=== PATIENT | female | born 1960 | race Caucasian/White ===

== ENCOUNTER 2018-10-21 17:42 | Inpatient (IN) | payer OTHER ==
[~2018-10-21] VITALS: Ht 154.9 cm; Wt 89.8 kg
[2018-10-21] MEDS ORDERED: NS 1,000 ML IV ONE (18:15)
[2018-10-21] MEDS ORDERED: KETOROLAC 30 MG/ML VIAL (J1885) IV ONE (18:15)
[2018-10-21] MEDS ORDERED: ONDANSETRON 4MG/2ML VIAL (J2405) IV ONE (18:15)
[2018-10-21 18:36] LABS: BASO # 0.1 10^3/uL (0.0-0.2); BASO % 0.6 % (0.0-1.0); EOS % 0.2 % (0.0-3.0); HEMATOCRIT 47.8 % (36.0-47.0); HEMOGLOBIN 15.7 g/dl (12.0-15.5); LYMPH # 2.4 10^3/uL (1.5-4.5); LYMPH % 19.2 % (24.0-44.0); MEAN CORPUSCULAR HEMOGLOBIN 29.2 pg (27.0-33.0); MEAN CORPUSCULAR HGB CONC 32.8 g/dl (32.0-36.5); MONO # 0.9 10^3/uL (0.0-0.8); MONO % 7.4 % (0.0-5.0); NEUTROPHILS # 9.2 10^3/uL (1.8-7.7); NEUTROPHILS % 72.4 % (36.0-66.0); PLATELET COUNT, AUTOMATED 290 10^3/uL (150-450); RED BLOOD COUNT 5.37 10^6/uL (4.00-5.40); WHITE BLOOD COUNT 12.7 10^3/uL (4.0-10.0)
[2018-10-21 19:00] LABS: ACETONE/KETONE 2.82 MG/DL (<2.81); ALBUMIN 4.2 GM/DL (3.2-5.2); ALT/SGPT 28 U/L (12-78); BILIRUBIN,DIRECT 0.2 MG/DL (0.0-0.2); BILIRUBIN,TOTAL 0.7 MG/DL (0.2-1.0); BLOOD UREA NITROGEN 15 MG/DL (7-18); CALCIUM LEVEL 8.9 MG/DL (8.5-10.1); CARBON DIOXIDE LEVEL 28 MEQ/L (21-32); CHLORIDE LEVEL 102 MEQ/L (98-107); CPK CREATINE PHOSPHOKINASE 84 U/L (26-192); CREATININE FOR GFR 0.71 MG/DL (0.55-1.30); GLOMERULAR FILTRATION RATE > 60.0 (>51); GLUCOSE, FASTING 121 MG/DL (70-100); LIPASE 69 U/L (73-393); MB/CK RELATIVE INDEX 1.67 (< OR =4); PHOSPHORUS LEVEL 2.8 MG/DL (2.5-4.9); POTASSIUM SERUM 3.6 MEQ/L (3.5-5.1); SODIUM LEVEL 137 MEQ/L (136-145); TOTAL PROTEIN 7.8 GM/DL (6.4-8.2); TROPONIN I < 0.02 NG/ML (< 0.10)
[2018-10-21 19:10] LABS: OSMOLALITY SERUM 290 MOSM/KG (275-295)
--- NOTE | 2018-10-21 19:40 | REPVR ---
EXAM: US Abdomen Limited, Right Upper Quadrant EXAM DATE/TIME: 10/21/2018 7:09 PM CLINICAL HISTORY: 58 years old, female; Pain; Abdominal pain; Acute; Additional info: Ruq pain TECHNIQUE: Real-time ultrasound of the abdomen with image documentation. Examination was focused on the right upper quadrant. COMPARISON: No relevant prior studies available. FINDINGS: Liver: There is a diffuse decrease in hepatic parenchymal density, consistent with fatty infiltration. Gallbladder: Thickened gallbladder wall. Gallbladder filled with sludge. Positive sonographic Reeder's sign. Pericholecystic fluid. Findings consistent with acute cholecystitis. Common bile duct: Common bile duct measures 3-2 millimeters. Pancreas: Obscured by bowel gas Right kidney: Normal. Measures 10.4 x 5 x 4.1 cm. No mass. No hydronephrosis. IMPRESSION: 1. There is a diffuse decrease in hepatic parenchymal density, consistent with fatty infiltration. 2. Thickened gallbladder wall. Gallbladder filled with sludge. Positive sonographic Reeder's sign. Pericholecystic fluid. Findings consistent with acute cholecystitis. Electronically signed by: Diaz Montes On 10/21/2018 19:40:14 PM
[2018-10-21] MEDS ORDERED: EXCETAB80 PO (20:09)
[2018-10-21] MEDS ORDERED: LR 1,000 ML IV SCH (20:54)
[2018-10-21] MEDS ORDERED: PERCOCET 5MG/325MG TAB PO PRN (21:00)
[2018-10-21] MEDS ORDERED: ONDANSETRON 4MG/2ML VIAL (J2405) IV PRN (21:00)
[2018-10-21] MEDS ORDERED: ACETAMINOPHEN TAB 650MG DOSE (2X325MG) PO PRN (21:00)
[2018-10-21] MEDS ORDERED: AMPICILLIN SOD/SULBACTAM SOD 3 GM in D5W MINI-BAG PLUS 100 ML IV STA (21:04)
[2018-10-21] MEDS: MORPHINE 4 MG/ML 1ML VIAL/SYRINGE (J2270) IV PRN (22:00)
[2018-10-21 22:45] VITALS: BP 158/71
[2018-10-21] MEDS: metroNIDAZOLE 500 MG in APPROPRIATE DILUENT 1 EA IV SCH (23:05)
[2018-10-21] MEDS: PERCOCET 5MG/325MG TAB PO PRN (23:07)
[2018-10-22] MEDS: AMPICILLIN SOD/SULBACTAM SOD 3 GM in D5W MINI-BAG PLUS 100 ML IV SCH ×4 (03:49→22:50)
[2018-10-22] MEDS: MORPHINE 4 MG/ML 1ML VIAL/SYRINGE (J2270) IV PRN (03:50)
[2018-10-22 04:00] VITALS: BP 142/76
[2018-10-22] MEDS: HEPARIN SOD (PORCINE) 5000 UNITS/ML VIAL SC SCH ×3 (06:35→22:50)
[2018-10-22] MEDS: metroNIDAZOLE 500 MG in APPROPRIATE DILUENT 1 EA IV SCH ×3 (06:35→22:50)
[2018-10-22] MEDS: PERCOCET 5MG/325MG TAB PO PRN (06:45)
[2018-10-22 08:15] VITALS: BP 130/60
[2018-10-22 08:31] LABS: BASO # 0.1 10^3/uL (0.0-0.2); BASO % 0.6 % (0.0-1.0); EOS # 0.1 10^3/uL (0.0-0.50); EOS % 0.8 % (0.0-3.0); HEMATOCRIT 41.1 % (36.0-47.0); LYMPH # 1.7 10^3/uL (1.5-4.5); LYMPH % 19.2 % (24.0-44.0); MEAN CORPUSCULAR HEMOGLOBIN 29.4 pg (27.0-33.0); MEAN CORPUSCULAR HGB CONC 32.4 g/dl (32.0-36.5); MEAN CORPUSCULAR VOLUME 90.7 fl (80.0-96.0); MONO # 0.8 10^3/uL (0.0-0.8); MONO % 8.7 % (0.0-5.0); NEUTROPHILS # 6.1 10^3/uL (1.8-7.7); NEUTROPHILS % 70.5 % (36.0-66.0); PLATELET COUNT, AUTOMATED 208 10^3/uL (150-450); RED BLOOD COUNT 4.53 10^6/uL (4.00-5.40); WHITE BLOOD COUNT 8.6 10^3/uL (4.0-10.0)
[2018-10-22 08:33] LABS: HEMOGLOBIN 13.3 g/dl (12.0-15.5)
[2018-10-22 09:05] LABS: ALBUMIN 2.9 GM/DL (3.2-5.2); ALT/SGPT 57 U/L (12-78); BLOOD UREA NITROGEN 12 MG/DL (7-18); CARBON DIOXIDE LEVEL 29 MEQ/L (21-32); CHLORIDE LEVEL 106 MEQ/L (98-107); CPK CREATINE PHOSPHOKINASE 61 U/L (26-192); CREATININE FOR GFR 0.58 MG/DL (0.55-1.30); GLOMERULAR FILTRATION RATE > 60.0 (>51); GLUCOSE, FASTING 115 MG/DL (70-100); MB/CK RELATIVE INDEX 2.13 (< OR =4); POTASSIUM SERUM 3.3 MEQ/L (3.5-5.1); SODIUM LEVEL 139 MEQ/L (136-145); TROPONIN I < 0.02 NG/ML (< 0.10)
[2018-10-22 09:50] LABS: MAGNESIUM LEVEL 1.9 MG/DL (1.8-2.4)
[2018-10-22] MEDS ORDERED: POTASSIUM CHLORIDE INJ 20 MEQ in LR 1,000 ML IV SCH (10:00)
[2018-10-22] MEDS ORDERED: POTASSIUM CHLORIDE 10 MEQ SR TABLET PO ONE (10:00)
[2018-10-22] MEDS: KETOROLAC 30 MG/ML VIAL (J1885) IV PRN ×3 (10:28→23:08)
[2018-10-22 14:51] LABS: CPK CREATINE PHOSPHOKINASE 60 U/L (26-192); MB/CK RELATIVE INDEX 1.83 (< OR =4); TROPONIN I < 0.02 NG/ML (< 0.10)
[2018-10-22 16:30] VITALS: BP 155/74
--- NOTE | 2018-10-22 17:38 | ECGEPIP ---
Stationary ECG Study 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
--- NOTE | 2018-10-22 17:42 | ECGEPIP ---
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
[2018-10-22] MEDS ORDERED: NICOTINE 21MG/24HR 1 EA TRANSDERMAL TD PRN (18:45)
--- NOTE | 2018-10-22 19:18 | CR ---
DATE OF CONSULTATION: 10/22/2018 REFERRING PHYSICIAN: Yg Guy MD PRIMARY CARE PROVIDER: None. Arrangements made for patient to have an appointment with [facility]. REASON FOR CONSULTATION: EKG changes. CHIEF COMPLAINT: Abdominal pain. HISTORY OF PRESENT ILLNESS: This is a 58-year-old female patient who has not seen a doctor for many years. Does not have a primary care provider. Does not have any past medical history. Is obese. Is an active smoker. Currently on Chantix. Presented with abdominal pain and dry heaving for three days. Denies any chest pain, pressure or discomfort. Denies any shortness of breath. Was admitted under Dr. Guy, general surgery for acute cholecystitis. Currently given fluids and antibiotics with much improvement. Diet was advanced. Patient was admitted overnight. EKG was done in the morning showing read of ST segment myocardial infarction (NC). Subsequently hospitalist was consulted. Patient was seen at the bedside. Denies any chest pain, pressure or discomfort. Denies any shortness of breath. EKG was reviewed closely. Patient has sinus rhythm with T wave inversion of V`, V2. No ST segment elevations. Repeat EKG was done. First EKG was mistakenly read. Repeat EKG was done. Serial cardiac enzymes have been negative. Patient currently is asymptomatic. PAST MEDICAL HISTORY: Obesity, otherwise negative. PAST SURGICAL HISTORY: Tonsillectomy. Neck cyst removal. FAMILY HISTORY: None reported. SOCIAL HISTORY: Currently active smoker. One pack per day for 30 to 40 years. Does not drink alcohol. Lives at home with . REVIEW OF SYSTEMS: Reported abdominal pain, dry heaving that has improved. Tolerating diet. All other review of systems are negative. HOME MEDICATIONS: - Excedrin daily as needed for migraine PHYSICAL EXAMINATION: VITAL SIGNS: Temperature 98.8, pulse 80, respirations 18, blood pressure 155/74, pulse ox 96% on room air. GENERAL: Patient alert, comfortable. In no acute distress. obese. HEENT: Normocephalic, atraumatic. PULMONARY: Bilateral clear. CARDIAC: Regular. S1, S2. ABDOMEN: Right upper quadrant tenderness. No rebound. No guarding. Positive bowel sounds. EXTREMITIES: No clubbing, cyanosis or edema. EKG: Sinus rhythm. Low voltage study. T wave inversion V1, V2. LABORATORY: WBC 8.6, hemoglobin and hematocrit 13.3/41.1. Platelets 208. Chemistry: Sodium 139, potassium 3.3, chloride 106, bicarbonate 29, BUN 12, creatinine 0.58. Cardiac enzymes negative times three. ASSESSMENT AND PLAN: This is a 58-year-old female patient with underlying medical history of obesity, poorly compliant, have not seen doctor, active smoker, admitted under general surgery for acute cholecystitis. Medicine consulted for EKG changes. PROBLEMS: 1. EKG changes. Patient has not symptoms. EKG has been reviewed and repeat EKG was done. Serial cardiac enzymes have been negative. 2. Acute cholecystitis. Management as per surgery. Advance diet as per surgery. Antibiotics, pain regimen as per surgery. Primary care provider arrangement has been made for elective cholecystectomy prior preoperative optimization. 3. Smoking counseling provided for smoking cessation. Nicotine patch has been offered. 4. Obesity complicating care. 5. Prediabetes. Counseling provided. Dietary change recommendation has been made. Will need outpatient followup. 6. Hypokalemia. Supplemented. Will monitor. 7. Deep venous thrombosis (DVT) prophylaxis. Heparin subcutaneous. DISPOSITION: As per general surgery.
[2018-10-22 20:00] VITALS: BP 172/81
--- NOTE | 2018-10-22 20:48 | ECGEPIP ---
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
[2018-10-23] VITALS: BP 141/80
[2018-10-23] MEDS: KETOROLAC 30 MG/ML VIAL (J1885) IV PRN (04:45)
[2018-10-23] MEDS: AMPICILLIN SOD/SULBACTAM SOD 3 GM in D5W MINI-BAG PLUS 100 ML IV SCH ×2 (04:46→10:12)
[2018-10-23] MEDS: HEPARIN SOD (PORCINE) 5000 UNITS/ML VIAL SC SCH (06:44)
[2018-10-23] MEDS: metroNIDAZOLE 500 MG in APPROPRIATE DILUENT 1 EA IV SCH (06:44)
--- NOTE | 2018-10-23 06:50 | HPEPDOC ---
General Surgery H&P Date of Admission Oct 22, 2018 Attending Physician: RIO ORDONEZ MD History and Physical CHIEF COMPLAINT: abdominal pain and vomiting HISTORY OF PRESENT ILLNESS: Patient is a 58 year old female who does not see a regular doctor. She reports sudden onset of pain over her epigastric area and ri ght upper quadrant area of 3 days duration prior to her presentation to the ED last night. She denies any prior episodes of similar symptoms. She was in her usual state of health when she started having discomfort on her abdomen which she initially attrributed to Heartburn type symptoms. The following day she felt worse with increasing pain now centered over the right upper quadrant area with nausea and retching but no actual vomiting. She denies any diarrhea. This persisted for another day and did not seem like it will cayla. Patient has not had a full meal according to her since it started Saturday. This prompted her to six consult in the emergency room. She denies any prior episodes of similar symptoms ALLERGIES: Please see below. HOME MEDICATIONS: Please see below. PAST MEDICAL HISTORY: 1. She denies any chronic medical problems. She does not visit a doctor regularly. PAST SURGICAL HISTORY: 1.Should the cyst removed from under her chin when she was a child PERSONAL/SOCIAL HISTORY: She reports smoking one pack a day for several years. She reports occasional alcohol intake. She denies recreational drug use REVIEW OF SYSTEMS: GENERAL: Denies chills, fatigue, fever, weight gain and weight loss. HEENT: Denies blurred vision and double vision. Denies ear symptoms. Denies hoarseness. NECK: Denies any neck pain. CARDIOVASCULAR: Denies chest pain and palpitations. MUSCULOSKELETAL: Denies arthralgias, back pain and thrombophlebitis. SKIN: Denies rash. NEUROLOGIC: Denies headache, stroke and transient ischemic attack. PSYCHIATRIC: Denies anxiety and depression. ENDOCRINE: Denies thyroid disease. HEMATOLOGY/ONCOLOGY: Denies any bleeding or clotting disorder. HEART: Denies any chest pains, palpitations, paroxysmal dyspnea, orthopnea. PULMONARY: Denies chronic cough, dyspnea and wheezing.Reports feeling short of breath with effort but able to perform night activities without need for stopping. Denies chronic cough GASTROINTESTINAL: Denies rectal bleeding, family history of colon cancer, constipation, diarrhea, dysphagia, heartburn and jaundice. GENITOURINARY: Denies dysuria, frequency, hematuria and nocturia. ENDOCRINE: Denies polydipsia, polyphagia, polyuria, heat or cold intolerance. INFECTIOUS: Denies any recent upper respiratory tract infection, UTI, need for use of antibiotics. NUTRITION: Reports good appetite. PHYSICAL EXAMINATION: VITAL SIGNS: Please see below. GENERAL APPEARANCE: Patient seen at bedside, appears relatively comfortable. Awake, alert, oriented. HEENT: Normocephalic, atraumatic. [place] palpebral conjunctivae. Anicteric sclerae. Lips dry. CHEST: No chest wall abnormalities. Normal respiratory motion/effort. NECK: Supple. No thyromegaly. No lymphadenopathies. LUNGS: Lung sounds are clear to auscultation bilaterally. No wheezing appreciated. HEART: No chest wall abnormalities. Heart rate and rhythm are regular with no murmurs. ABDOMEN: Abdomen is moderately obese, soft, rounded. Nondistended. She is a noticeable umbilical hernia is reducible. Skin on top of this slightly send out. There are no surgical scars. Moderate size pannus. She is mildly tender over the right upper quadrant area but negative for definite Reeder sign. No hepatosplenomegaly. No umbilical or groin herniations, nondistended. No noticeable rebound or guarding. No grimacing with palpation. No rebound tenderness. No masses appreciated. SKIN: Warm, moist. EXTREMITIES: Extremities have no deformities. No edema identified. NEUROLOGICAL: Patient is awake, alert, oriented, moves all extremities equally. She denies any numbness. ANCILLARIES: . LABORATORY DATA: Please see below. MICROBIOLOGY: Please see below. IMAGING: Ultrasound of the abdomen. Cholelithiasis, thickened abdominal wall. Positive for sonographic Reeder sign consistent with acute cholecystitis IMPRESSION AND PLAN: Cholelithiasis with acute cholecystitis On presentation patient reports a three day history of ongoing abdominal discomfort and she is evidence for acute cholecystitis related to her gallstones. She has mild leukocytosis. She was started IV hydration, bowel rest and overnight she felt markedly better. I spoke to her about the options for surgery. The main issue as I see it is the timing of the cholecystectomy. She is on her fourth day of her acute inflammation and at this point she is already getting better with medical management. Given the evidence of acute inflammation and on the ultrasound, I told her that it is feasible to still perform cholecys tectomy toward this way moderately increased risks for bleeding, even bile duct injury and conversion to open surgery. Another option will be to continue with medical management and bring her back in about 4 to 6 weeks for laparoscopic cholecystectomy. A side issue is that she has not seen a doctor in several years. She was told in the ER she may be possibly diabetic though her sugars aren't that high. I took a preoperative EKG at this had some acute ST change elevation though she is not having any chest pains at all. In the ER her troponins have been checked and this was normal. I'll check another set of cardiac markers and I will ask the hospital service to come evaluate her. I think it may be prudent to treat her medically at this point as she is already getting better and find her a primary care doctor to fully work her up for any undetermined chronic medical problems and bring her back for an elective gallbladder surgery. She is in agreement with this plan. I will start her on the quiz and see how she does. Vital Signs Vital Signs Date Time Temp Pulse Resp B/P (MAP) Pulse Ox O2 Delivery O2 Flow Rate FiO2 10/22/18 07:20 18 10/22/18 04:00 97.7 74 142/76 (98) 95 10/21/18 22:09 Room Air I&Os I&O- Last 24 Hours up to 6 AM 10/22/18 06:00 Intake Total 825 ml Output Total 250 ml Balance 575 ml Laboratory Data Labs 24H Laboratory Tests 2 10/21/18 18:20: Immature Granulocyte % (Auto) 0.2, White Blood Count 12.7H, Red Blood Count 5.37, Hemoglobin 15.7H, Hematocrit 47.8H, Mean Corpuscular Volume 89.0, Mean Corpuscular Hemoglobin 29.2, Mean Corpuscular Hemoglobin Concent 32.8, Red Cell Distribution Width 12.7, Platelet Count 290, Neutrophils (%) (Auto) 72.4H, Lymphocytes (%) (Auto) 19.2L, Monocytes (%) (Auto) 7.4H, Eosinophils (%) (Auto) 0.2, Basophils (%) (Auto) 0.6, Neutrophils # (Auto) 9.2H, Lymphocytes # (Auto) 2.4, Monocytes # (Auto) 0.9H, Eosinophils # (Auto) 0.0, Basophils # (Auto) 0.1, Nucleated Red Blood Cells % (auto) 0.0, Anion Gap 7L, Glomerular Filtration Rate > 60.0, Estimated Mean Plasma Glucose 126H, Hemoglobin A1c 6.0, Osmolality 290, Calcium Level 8.9, Phosphorus Level 2.8, Magnesium Level 2.0, Aspartate Amino Transf (AST/SGOT) 19, Alanine Aminotransferase (ALT/SGPT) 28, Alkaline Phosphatase 80, Total Bilirubin 0.7, Direct Bilirubin 0.2, Total Creatine Kinase 84, Creatine Kinase MB 1.0, Creatine Kinase MB Relative Index 1.67, Troponin I < 0.02, Total Protein 7.8, Albumin 4.2, Albumin/Globulin Ratio 1.17, Lipase 69L, B-Hydroxybutyrate 2.82H 10/22/18 08:12: CBC/BMP Laboratory Tests 10/21/18 18:20 Red Blood Count 5.37, Mean Corpuscular Volume 89.0, Mean Corpuscular Hemoglobin 29.2, Mean Corpuscular Hemoglobin Concent 32.8, Red Cell Distribution Width 12.7, Neutrophils (%) (Auto) 72.4 H, Lymphocytes (%) (Auto) 19.2 L, Monocytes (%) (Auto) 7.4 H, Eosinophils (%) (Auto) 0.2, Basophils (%) (Auto) 0.6, Neutrophils # (Auto) 9.2 H, Lymphocytes # (Auto) 2.4, Monocytes # (Auto) 0.9 H, Eosinophils # (Auto) 0.0, Basophils # (Auto) 0.1 Home Medications Scheduled PRN Acetaminophen/Aspirin/Caffein (Excedrin Migraine 250-250-65 mg) 1 Tab Tab, 1 TAB PO DAILY PRN for HEADACHE, (Reported) Allergies Coded Allergies: No Known Allergies (Unverified , 10/21/18) RIO ORDONEZ MD Oct 22, 2018 08:30
[2018-10-23 07:33] LABS: BASO % 0.6 % (0.0-1.0); EOS # 0.1 10^3/uL (0.0-0.50); EOS % 0.9 % (0.0-3.0); HEMATOCRIT 40.5 % (36.0-47.0); HEMOGLOBIN 13.2 g/dl (12.0-15.5); LYMPH # 1.3 10^3/uL (1.5-4.5); LYMPH % 19.3 % (24.0-44.0); MEAN CORPUSCULAR HEMOGLOBIN 29.4 pg (27.0-33.0); MEAN CORPUSCULAR HGB CONC 32.6 g/dl (32.0-36.5); MEAN CORPUSCULAR VOLUME 90.2 fl (80.0-96.0); MONO # 0.7 10^3/uL (0.0-0.8); MONO % 10.3 % (0.0-5.0); NEUTROPHILS # 4.7 10^3/uL (1.8-7.7); NEUTROPHILS % 68.6 % (36.0-66.0); PLATELET COUNT, AUTOMATED 201 10^3/uL (150-450); RED BLOOD COUNT 4.49 10^6/uL (4.00-5.40); WHITE BLOOD COUNT 6.9 10^3/uL (4.0-10.0)
[2018-10-23 07:53] LABS: ALT/SGPT 38 U/L (12-78); BILIRUBIN,TOTAL 0.6 MG/DL (0.2-1.0); BLOOD UREA NITROGEN 6 MG/DL (7-18); CALCIUM LEVEL 7.9 MG/DL (8.5-10.1); CARBON DIOXIDE LEVEL 29 MEQ/L (21-32); CHLORIDE LEVEL 105 MEQ/L (98-107); CREATININE FOR GFR 0.53 MG/DL (0.55-1.30); GLOMERULAR FILTRATION RATE > 60.0 (>51); GLUCOSE, FASTING 118 MG/DL (70-100); MAGNESIUM LEVEL 1.8 MG/DL (1.8-2.4); POTASSIUM SERUM 3.5 MEQ/L (3.5-5.1); SODIUM LEVEL 140 MEQ/L (136-145); TOTAL PROTEIN 6.3 GM/DL (6.4-8.2)
[2018-10-23 08:00] VITALS: BP 151/70
[2018-10-23] MEDS ORDERED: AMLO25TA PO (08:17)
[2018-10-23] MEDS ORDERED: MAG SULF 1GM/100ML (MAG RUN) 1 GM in APPROPRIATE DILUENT 1 EA IV ONE (08:30)
[2018-10-23] MEDS ORDERED: POTASSIUM CHLORIDE 10 MEQ SR TABLET PO ONE (08:30)
[2018-10-23 10:13] VITALS: BP 151/70
[2018-10-23] MEDS ORDERED: PERCOCET PO (11:01)
[2018-10-23] MEDS ORDERED: AMOX875T2 PO (11:01)
--- NOTE | 2018-10-23 20:35 | IPN ---
DATE: 10/23/2018 Patient seen and examined. No acute events overnight. Tolerating diet. Reported right upper quadrant abdominal pain improved. Denies any chest pain, pressure or discomfort. Denies any shortness of breath. VITAL SIGNS: Temperature 97.7, pulse 82, respirations 20, blood pressure 151/70, pulse oximetry 95% on room air. LABORATORY: WBC 6.9, hemoglobin and hematocrit 13.2/40.5, platelets 201. Chemistry: Sodium 140, potassium 3.5, chloride 105, bicarbonate 29, BUN 6, creatinine 0.53. PHYSICAL EXAMINATION: GENERAL: Patient alert, comfortable, in no acute distress. Obese. HEENT: Normocephalic, atraumatic. PULMONARY: Bilateral clear. CARDIAC: Regular. S1, S2. ABDOMEN: Right upper quadrant mild tenderness. No rebound. No guarding. Positive bowel sounds. EXTREMITIES: No edema bilateral lower extremities. ASSESSMENT AND PLAN: This is a 58-year-old female patient who has not seen a doctor for many years with underlying medical history of obesity, poorly compliant admitted to the hospital under general surgery for acute cholecystitis. Medicine consulted for EKG changes. PROBLEMS 1. EKG changes. Patient is asymptomatic. Repeat EKG is negative. Serial cardiac enzymes negative. 2. Acute cholecystitis. Management as per surgery. Currently tolerating diet. Continue antibiotics. Further management and outpatient followup with general surgery. Antibiotics as per general surgery. Pain regimen as per general surgery. 3. Hypertension. Norvasc low dose has been added. Further management as per primary care provider. I suspect once the pain is better might improve. 4. Smoking. Counseling provided. Nicotine patch has been offered. 5. Obesity complicating care. 6. Prediabetes. Counseling provided. Recommend diet and exercise. Recommend followup with primary care provider for further management. Ac1 appreciated. 7. Hypokalemia. Supplemented. Currently improved. 8. Deep venous thrombosis (DVT) prophylaxis. On heparin subcutaneous as per general surgery. DISPOSITION: As per general surgery. Likely discharged today.
== END 2018-10-23 11:45 | disposition home or self-care (01) ==
LOC: M ED 17:42 → M ED INP 20:54 → M PED 22:39
PROVIDERS: ADMIT Surgery; ATTEND Surgery
DX: K81.0 Acute cholecystitis (principal); I10 Essential (primary) hypertension; F17.200 Nicotine dependence, unspecified, uncomplicated; E66.9 Obesity, unspecified; E87.6 Hypokalemia

== ENCOUNTER 2018-12-01 07:30 | Inpatient (IN) | payer OTHER ==
[~2018-12-01] VITALS: Ht 152.4 cm; Wt 90.3 kg
[~2018-12-01 07:30] MED LIST: AMLO25TA PO; AMOX875T2 PO; AMPICILLIN SOD/SULBACTAM SOD 3 GM in D5W MINI-BAG PLUS 100 ML IV ONE; EXCETAB80 PO; LR 1,000 ML IV ONE; PERCOCET PO
[2018-12-01] MEDS ORDERED: fentaNYL 100 MCG/2 ML INJECTION (J3010) As Ordered ONE ×3 (08:44→13:49)
[2018-12-01] MEDS ORDERED: MIDAZOLAM INJ 2 MG/2 ML VIAL (J2250) As Ordered ONE (08:45)
[2018-12-01] MEDS ORDERED: ROCURONIUM BROMIDE 50 MG/5 ML VIAL As Ordered ONE (08:47)
[2018-12-01] MEDS ORDERED: LIDOCAINE 2% INJ 100 MG/5 ML SDV (FOR ANES.) As Ordered ONE ×2 (08:47→12:52)
[2018-12-01] MEDS ORDERED: PROPOFOL 200 MG/20 ML VIAL As Ordered ONE ×2 (08:47→12:52)
[2018-12-01] MEDS ORDERED: ONDANSETRON 4MG/2ML VIAL (J2405) As Ordered ONE (09:27)
[2018-12-01] MEDS ORDERED: dexameTHASONE 4 MG/ML 1ML VIAL (J1100) As Ordered ONE (09:27)
[2018-12-01] MEDS ORDERED: LIDOCAINE 1% SDV INJ 30 ML VIAL As Ordered ONE (11:29)
[2018-12-01] MEDS ORDERED: BUPIVACAINE HCL 0.25% 30 ML VIAL As Ordered ONE (11:29)
[2018-12-01] MEDS ORDERED: NEOSTIGMINE 10 MG/10 ML VIAL (J2710) As Ordered ONE (14:21)
[2018-12-01] MEDS ORDERED: LR 1,000 ML IV SCH (14:40)
[2018-12-01] MEDS ORDERED: PERCOCET 5MG/325MG TAB PO PRN ×2 (14:45)
[2018-12-01] MEDS ORDERED: ACETAMINOPHEN TAB 650MG DOSE (2X325MG) PO PRN (14:45)
[2018-12-01] MEDS ORDERED: MORPHINE 4 MG/ML 1ML VIAL/SYRINGE (J2270) IV PRN (14:45)
[2018-12-01] MEDS ORDERED: ONDANSETRON 4MG/2ML VIAL (J2405) IV PRN ×2 (14:45→15:30)
[2018-12-01] MEDS ORDERED: NORCO, ANEXSIA 5/325MG TABLET (HYDROcodone/ACETAMINOPHEN) PO PRN (15:30)
[2018-12-01] MEDS ORDERED: fentaNYL 100 MCG/2 ML INJECTION (J3010) IV PRN (15:30)
[2018-12-01] MEDS ORDERED: HYDROMORPHONE HCL 0.5 MG/ 0.5 ML SYRINGE (J1170 PER 1) IV PRN (15:30)
[2018-12-01 16:00] VITALS: BP 161/72
[2018-12-01 16:30] VITALS: BP 132/65
[2018-12-01] MEDS: KETOROLAC 30 MG/ML VIAL (J1885) IV PRN ×2 (16:59→23:24)
[2018-12-01] MEDS ORDERED: PANTOPRAZOLE 40MG INJ (PROTONIX) (C9113) IV SCH ×2 (17:00→18:00)
[2018-12-01] MEDS: CIPROFLOXACIN 400 MG in APPROPRIATE DILUENT 1 EA IV SCH (17:01)
[2018-12-01 17:30] VITALS: BP 135/70
[2018-12-01] MEDS: metroNIDAZOLE 500 MG in APPROPRIATE DILUENT 1 EA IV SCH (18:24)
[2018-12-01 18:30] VITALS: BP 144/69
[2018-12-01 20:00] VITALS: BP 120/59
[2018-12-01] MEDS ORDERED: ENOXAPARIN 40 MG/0.4 ML SYRINGE (J1650) SC SCH (21:00)
[2018-12-01] MEDS: SENOKOT S TAB PO SCH (21:27)
[2018-12-02] VITALS: BP 104/55
[2018-12-02] MEDS: metroNIDAZOLE 500 MG in APPROPRIATE DILUENT 1 EA IV SCH ×2 (01:35→08:46)
[2018-12-02] MEDS: CIPROFLOXACIN 400 MG in APPROPRIATE DILUENT 1 EA IV SCH (04:26)
[2018-12-02 06:00] VITALS: BP 114/59
[2018-12-02] MEDS: KETOROLAC 30 MG/ML VIAL (J1885) IV PRN ×2 (06:00→11:48)
[2018-12-02 07:12] LABS: BASO % 0.2 % (0.0-1.0); EOS % 0.1 % (0.0-3.0); HEMATOCRIT 37.8 % (36.0-47.0); LYMPH # 1.8 10^3/uL (1.5-4.5); LYMPH % 14.2 % (24.0-44.0); MEAN CORPUSCULAR HGB CONC 31.7 g/dl (32.0-36.5); MEAN CORPUSCULAR VOLUME 91.3 fl (80.0-96.0); MONO # 0.8 10^3/uL (0.0-0.8); MONO % 5.9 % (0.0-5.0); NEUTROPHILS # 10.3 10^3/uL (1.8-7.7); NEUTROPHILS % 79.1 % (36.0-66.0); PLATELET COUNT, AUTOMATED 211 10^3/uL (150-450); RED BLOOD COUNT 4.14 10^6/uL (4.00-5.40)
[2018-12-02 07:36] LABS: ALBUMIN 2.9 GM/DL (3.2-5.2); ALT/SGPT 28 U/L (12-78); BILIRUBIN,TOTAL 0.3 MG/DL (0.2-1.0); BLOOD UREA NITROGEN 7 MG/DL (7-18); CALCIUM LEVEL 7.9 MG/DL (8.5-10.1); CARBON DIOXIDE LEVEL 27 MEQ/L (21-32); CHLORIDE LEVEL 107 MEQ/L (98-107); CREATININE FOR GFR 0.63 MG/DL (0.55-1.30); GLOMERULAR FILTRATION RATE > 60.0 (>51); GLUCOSE, FASTING 111 MG/DL (70-100); POTASSIUM SERUM 4.1 MEQ/L (3.5-5.1); SODIUM LEVEL 141 MEQ/L (136-145); TOTAL PROTEIN 5.6 GM/DL (6.4-8.2)
[2018-12-02 08:00] VITALS: BP 131/57
[2018-12-02] MEDS: SENOKOT S TAB PO SCH (08:46)
[2018-12-02 09:38] VITALS: BP 131/57
--- NOTE | 2018-12-02 10:32 | ROOPDOC ---
[facility] Report Of Operation Report of Operation DATE OF PROCEDURE: 12/01/18 PREPROCEDURE DIAGNOSES: history of acute cholecystitis, cholelithiasis. POSTPROCEDURE DIAGNOSES: cholelithiasis, chronic cholecystitis. PROCEDURE: Laparoscopic Cholecystectomy. SURGEON: Yg Guy MD [employer] AGENCY LICENSEE: MD Dr. Ignacio Buckley assisted me with placement of ports, retraction gallbladder, closure of the incisions. ANESTHESIA: General Anesthesia. ESTIMATED BLOOD LOSS: Approximately 100 mL. COMPLICATIONS: none. REMARKS: gallbladder continues to be inflamed, there is a contained necrotic portion on the midbody at the anterior surface. Large stone stuck at the neck of the gallbladder DRAINS: 19 Charles Drain. DESCRIPTION OF PROCEDURE: Patient was given a dose Unasyn 3 g IV preoperatively for prophylaxis. She was brought to the operating room, laid supine on the table, compression boots placed for DVT prophylaxis. General endotracheal anesthesia started. Her abdomen then prepped and draped in usual sterile fashion. Surgical timeout was performed prior to starting surgery. Entry into the abdomen done through an incision 5 cms above the umbilicus to avoid the moderate sized umbilical hernia that she has. A Veress needle was ins erted with a controlled fashion. CO2 insufflation started to pressure 15 mmHg. Using the same incision a 5 mm Visiport was placed under direct vision laparoscope. The area underneath the insertion site was inspected and no injury found. The umbilical hernia contains incarcerated omentum protruding throuh it but was not in our way. She was then placed in steep reverse Trendelenburg. Her right side was tilted up to further expose the gallbladder. Under direct vision a 11 mm epigastric port and Two 5 mm working ports placed along the right subcostal line. Operative findings: Her liver is noted to be smooth in contour, mildly enlarged probably mild fatty replace; no nodularities or lesions found. The fundus of the gallbladder was barely visible and most of the gallbladder was encased with slightly hardened, thickened omentum consistent with her history of acute cholecystitis. The gallb ladder appears tensely distended and thick walled. Once the omentum was dissected free of the gallbladder, there is an area at the lower midbody anteriorly which appears dusky, necrotic but no gross perforation. There is a large stone embedded at the neck of the gallbladder and I am not able to dislodge this. This made it difficult to handle the neck of the gallbladder for retraction. Over all there remains evidence for ongoing active inflammation around the gallbladder wall despite the fact that it has been 6 weeks after her hospitalization for acute cholecystitis. This is consistent with the subacute course of her cholecystitis as well as chronic cholecystitis. The fundus of the gallbladder was grasped and the gallbladder was elevated superiorly exposing the neck of the gallbladder. The peritoneum overlying the area was opened up and dissected free both anteriorly and posteriorly to help with retraction of the gallbladder. The hepatocystic triangle was approached and dissected using a [place] and instrument. The cystic duct was identified coming off from the next gallbladder this was circumferentially dissected. The cystic artery was identified in its usual position medially behind a small lymph node of [place]. This was similarly circumferentially dissected off surrounding adipose tissue. We continued posterior dissection proximally at the next gallbladder until a critical view of safety was achieved whereby only the previously identified duct and artery coursing through the neck the gallbladder. At this point the cystic artery was clipped 4 times and divided. After again checking her anatomy and verifying that the previously identified cystic duct, this was also clipped 4 times and divided. The rest of the gallbladder was then dissected free of the gallbladder bed using Bovie cautery. There was minimal bleeding at the lateral gallbladder attachments to the liver capsule this was easily controlled with Bovie cautery. The gallbladder was then placed in an Endo Catch bag and retrieved outside through the epigastric port site. After re- insufflation and inspected the clips and noted this to be in place. No further bleeding noted. No bile leakage noted. The abdomen was deflated all ports were removed. The epigastric fascial defect repaired with 0 Vicryl in a mattress fashion. Rest of the skin incisions closed with 4-0 Monocryl in subcuticular fashion. Steri-Strips and gauze dressings were placed, the wound. Patient was informed they awakened, extubated and brought to recovery room stable YG GUY MD Dec 02, 2018 10:32
[2018-12-02] MEDS ORDERED: PERCOCET PO (14:43)
== END 2018-12-02 15:35 | disposition home or self-care (01) | DRG 263 ==
LOC: M SDC 07:30 → M PED 14:20 → M SDC 12-02 15:35 → M PED 12-02 15:35
PROVIDERS: ADMIT Surgery; ATTEND Surgery
PROC: 0FT44ZZ Resection of Gallbladder, Percutaneous Endoscopic Approach (ICD-10-PCS; principal; 2018-12-01 09:15)
DX: K80.66 Calculus of gallbladder and bile duct with acute and chronic cholecystitis without obstruction (principal); I10 Essential (primary) hypertension

== ENCOUNTER → 2022-10-15 | Outpatient (CLI) | payer OTHER ==
[~2022-10-15] MED LIST changes: -AMPICILLIN SOD/SULBACTAM SOD 3 GM in D5W MINI-BAG PLUS 100 ML IV ONE; -LR 1,000 ML IV ONE
[2022-10-15 10:00] LABS: BASO # 0.1 10^3/uL (0.0-0.2); EOS # 0.2 10^3/uL (0.0-0.5); EOS % 2.5 % (0.0-3.0); HEMATOCRIT 48.9 % (36.0-47.0); HEMOGLOBIN 15.3 g/dl (12.0-15.5); LYMPH # 2.6 10^3/uL (1.5-5.0); LYMPH % 30.5 % (24.0-44.0); MEAN CORPUSCULAR HEMOGLOBIN 29.6 pg (27.0-33.0); MEAN CORPUSCULAR HGB CONC 31.3 g/dl (32.0-36.5); MEAN CORPUSCULAR VOLUME 94.6 fl (80.0-96.0); MONO # 0.7 10^3/uL (0.0-0.8); MONO % 8.3 % (2.0-8.0); NEUTROPHILS # 4.8 10^3/uL (1.5-8.5); NEUTROPHILS % 57.5 % (36.0-66.0); PLATELET COUNT, AUTOMATED 216 10^3/uL (150-450); RED BLOOD COUNT 5.17 10^6/uL (4.00-5.40); WHITE BLOOD COUNT 8.4 10^3/uL (4.0-10.0)
[2022-10-15 10:01] LABS: APPEARANCE, URINE CLEAR (CLEAR); BACTERIA, URINE AUTO 1+ (NEGATIVE); BILIRUBIN, URINE AUTO NEGATIVE (NEGATIVE); BLOOD, URINE BLOOD NEGATIVE (NEGATIVE); COLOR, URINE YELLOW (YELLOW); GLUCOSE, URINE (UA) AUTO NEGATIVE (NEGATIVE); KETONE, URINE AUTO NEGATIVE (NEGATIVE); LEUKOCYTE ESTERASE, URINE AUTO NEGATIVE (NEGATIVE); NITRITE, URINE AUTO NEGATIVE (NEGATIVE); PROTEIN, URINE AUTO NEGATIVE (NEGATIVE); RBC, URINE AUTO 0 /HPF (0-3); SPECIFIC GRAVITY URINE AUTO 1.006 (1.002-1.035); SQUAMOUS EPITHELIAL CELL UR AU 2 /HPF (0-6); UROBILINOGEN, URINE AUTO 0.2 mg/dL (0.0-2.0); WBC, URINE AUTO 0 /HPF (0-3)
[2022-10-15 10:36] LABS: ALBUMIN 3.8 G/DL (3.2-5.2); ALKALINE PHOSPHATASE 73 U/L (46-116); ALT/SGPT 16 U/L (7.0-40); AST/SGOT 15 U/L (<34); BILIRUBIN,TOTAL 0.7 MG/DL (0.3-1.2); BLOOD UREA NITROGEN 8 MG/DL (9-23); CALCIUM LEVEL 8.6 MG/DL (8.3-10.6); CARBON DIOXIDE LEVEL 33 MMOL/L (20-31); CHLORIDE LEVEL 101 MMOL/L (98-107); CHOLESTEROL LEVEL 177 MG/DL (<200); CREATININE FOR GFR 0.57 MG/DL (0.55-1.30); FREE T4 0.92 NG/DL (0.89-1.76); GLOMERULAR FILTRATION RATE > 60.0 (>45); GLUCOSE, FASTING 113 MG/DL (74-106); HDL CHOLESTEROL 44.2 MG/DL (>40); LDL CHOLESTEROL 102.6 MG/DL (<100); NON-HDL-C 133 MG/DL; POTASSIUM SERUM 3.7 MMOL/L (3.5-5.1); SODIUM LEVEL 139 MMOL/L (136-145); TRIGLYCERIDES LEVEL 151 MG/DL (<150)
[2022-10-15 11:01] LABS: HEMOGLOBIN A1c 5.9 % (4.0-6.0)
== END ==
LOC: M WUC 08:33
PROVIDERS: ATTEND Physician Assistant
DX: Z00.00 Encounter for general adult medical examination without abnormal findings (principal); I10 Essential (primary) hypertension; R73.02 Impaired glucose tolerance (oral)

== ENCOUNTER 2022-10-24 10:30 | Inpatient (IN) | payer OTHER ==
[~2022-10-24] VITALS: Ht 152.4 cm; Wt 111.9 kg
[2022-10-24 11:48] LABS: BASO % 0.3 % (0.0-1.0); HEMATOCRIT 50.1 % (36.0-47.0); HEMOGLOBIN 16.2 g/dl (12.0-15.5); LYMPH # 1.3 10^3/uL (1.5-5.0); LYMPH % 11.4 % (24.0-44.0); MEAN CORPUSCULAR HEMOGLOBIN 29.6 pg (27.0-33.0); MEAN CORPUSCULAR HGB CONC 32.3 g/dl (32.0-36.5); MEAN CORPUSCULAR VOLUME 91.6 fl (80.0-96.0); MONO # 0.5 10^3/uL (0.0-0.8); MONO % 4.1 % (2.0-8.0); NEUTROPHILS # 9.6 10^3/uL (1.5-8.5); NEUTROPHILS % 83.9 % (36.0-66.0); PLATELET COUNT, AUTOMATED 257 10^3/uL (150-450); RED BLOOD COUNT 5.47 10^6/uL (4.00-5.40); WHITE BLOOD COUNT 11.5 10^3/uL (4.0-10.0)
[2022-10-24] MEDS ORDERED: ONDANSETRON 4MG 2ML VIAL IV ONE ×2 (11:50→13:45)
[2022-10-24] MEDS ORDERED: NS 1,000 ML IV SCH (11:50)
[2022-10-24] MEDS ORDERED: FAMOTIDINE 20MG/2ML VIAL IVP ONE (11:50)
[2022-10-24 12:31] LABS: LIPASE 23 U/L (12-53)
[2022-10-24 12:50] LABS: INR 0.98; PROTHROMBIN TIME 13.2 SECONDS (12.5-14.5)
[2022-10-24 13:01] LABS: BILIRUBIN,DIRECT 0.3 MG/DL (<0.4); BILIRUBIN,TOTAL 0.9 MG/DL (0.3-1.2); TOTAL PROTEIN 7.2 G/DL (5.7-8.2)
[2022-10-24 13:16] LABS: ALKALINE PHOSPHATASE 74 U/L (46-116); ALT/SGPT 23 U/L (7.0-40); AST/SGOT 22 U/L (<34); BILIRUBIN,DIRECT 0.3 MG/DL (<0.4); BLOOD UREA NITROGEN 16 MG/DL (9-23); CALCIUM LEVEL 9.3 MG/DL (8.3-10.6); CARBON DIOXIDE LEVEL 24 MMOL/L (20-31); CHLORIDE LEVEL 101 MMOL/L (98-107); CREATININE FOR GFR 0.55 MG/DL (0.55-1.30); GLOMERULAR FILTRATION RATE > 60.0 (>45); GLUCOSE, FASTING 144 MG/DL (74-106); POTASSIUM SERUM 3.8 MMOL/L (3.5-5.1); SODIUM LEVEL 138 MMOL/L (136-145); TOTAL PROTEIN 7.3 G/DL (5.7-8.2)
[2022-10-24 13:21] LABS: RSV AMPLIFICATION NEGATIVE (NEGATIVE)
[2022-10-24] MEDS ORDERED: MORPHINE 4 MG/ML 1ML VIAL IV ONE (13:45)
[2022-10-24] MEDS ORDERED: EXCETAB32 PO (14:25)
[2022-10-24] MEDS ORDERED: ALBU8.5H INH (14:25)
[2022-10-24] MEDS ORDERED: AMLO1TAB24 PO (14:25)
[2022-10-24] MEDS ORDERED: HOME MED LIST COMPLETE! XX SCH (14:25)
[2022-10-24] MEDS ORDERED: ALBUTEROL 90 MCG/ACT 8GM HFA INHALER INH PRN (15:00)
[2022-10-24] MEDS ORDERED: NICOTINE 21MG/24HR 1 EA TRANSDERMAL TD ONE (15:05)
[2022-10-24] MEDS ORDERED: IPRATROPIUM 0.5MG/ALBUTEROL 2.5MG INH SOL UD 3ML (DUONEB) NEB PRN (15:10)
[2022-10-24 16:35] VITALS: BP 148/100
[2022-10-24] MEDS: MORPHINE 4 MG/ML 1ML VIAL IV PRN (17:27)
[2022-10-24] MEDS: ONDANSETRON 4MG 2ML VIAL IV PRN (17:27)
[2022-10-24] MEDS: LR 1,000 ML IV SCH (17:27)
[2022-10-24] MEDS: amLODIPine 5 MG TAB PO SCH (17:29)
[2022-10-24 19:45] VITALS: BP 148/84
[2022-10-24] MEDS: IPRATROPIUM 0.5MG/ALBUTEROL 2.5MG INH SOL UD 3ML (DUONEB) NEB SCH (20:22)
[2022-10-24] MEDS: HEPARIN SOD (PORCINE) 5000UNITS/ML 1ML VIAL/SYRINGE SC SCH (21:08)
[2022-10-25] MEDS: MORPHINE 4 MG/ML 1ML VIAL IV PRN ×5 (00:57→19:35)
[2022-10-25] MEDS: IPRATROPIUM 0.5MG/ALBUTEROL 2.5MG INH SOL UD 3ML (DUONEB) NEB SCH ×5 (02:00→23:54)
[2022-10-25] MEDS: HEPARIN SOD (PORCINE) 5000UNITS/ML 1ML VIAL/SYRINGE SC SCH ×3 (05:18→20:48)
[2022-10-25] MEDS: LR 1,000 ML IV SCH ×3 (05:18→20:48)
[2022-10-25 06:00] VITALS: BP 131/78
[2022-10-25 06:42] LABS: HEMATOCRIT 46.6 % (36.0-47.0); HEMOGLOBIN 14.6 g/dl (12.0-15.5); MEAN CORPUSCULAR HEMOGLOBIN 29.9 pg (27.0-33.0); MEAN CORPUSCULAR HGB CONC 31.3 g/dl (32.0-36.5); MEAN CORPUSCULAR VOLUME 95.5 fl (80.0-96.0); PLATELET COUNT, AUTOMATED 223 10^3/uL (150-450); RED BLOOD COUNT 4.88 10^6/uL (4.00-5.40); WHITE BLOOD COUNT 11.6 10^3/uL (4.0-10.0)
[2022-10-25 07:05] LABS: BLOOD UREA NITROGEN 17 MG/DL (9-23); CALCIUM LEVEL 8.3 MG/DL (8.3-10.6); CARBON DIOXIDE LEVEL 29 MMOL/L (20-31); CHLORIDE LEVEL 104 MMOL/L (98-107); CREATININE FOR GFR 0.59 MG/DL (0.55-1.30); GLOMERULAR FILTRATION RATE > 60.0 (>45); GLUCOSE, FASTING 116 MG/DL (74-106); SODIUM LEVEL 140 MMOL/L (136-145)
[2022-10-25] MEDS: amLODIPine 5 MG TAB PO SCH (08:27)
[2022-10-25] MEDS ORDERED: MIRALAX *UNIT DOSE* 17GM PACKET PO ONE (10:00)
[2022-10-25 14:50] VITALS: BP 131/72
[2022-10-25 21:00] VITALS: BP 130/73
[2022-10-26] VITALS (7 sets, daily range): BP systolic 126–155; BP diastolic 57–76
[2022-10-26] MEDS: ONDANSETRON 4MG 2ML VIAL IV PRN (00:39)
[2022-10-26] MEDS: MORPHINE 4 MG/ML 1ML VIAL IV PRN ×4 (00:43→12:10)
[2022-10-26] MEDS: HEPARIN SOD (PORCINE) 5000UNITS/ML 1ML VIAL/SYRINGE SC SCH ×2 (05:20→21:50)
[2022-10-26] MEDS: IPRATROPIUM 0.5MG/ALBUTEROL 2.5MG INH SOL UD 3ML (DUONEB) NEB SCH ×3 (07:58→20:00)
[2022-10-26] MEDS: amLODIPine 5 MG TAB PO SCH (08:28)
[2022-10-26 08:42] LABS: HEMATOCRIT 44.2 % (36.0-47.0); HEMOGLOBIN 13.7 g/dl (12.0-15.5); MEAN CORPUSCULAR HEMOGLOBIN 29.5 pg (27.0-33.0); MEAN CORPUSCULAR VOLUME 95.3 fl (80.0-96.0); PLATELET COUNT, AUTOMATED 182 10^3/uL (150-450); RED BLOOD COUNT 4.64 10^6/uL (4.00-5.40); WHITE BLOOD COUNT 9.9 10^3/uL (4.0-10.0)
[2022-10-26 08:43] LABS: BLOOD UREA NITROGEN 11 MG/DL (9-23); CALCIUM LEVEL 8.3 MG/DL (8.3-10.6); CARBON DIOXIDE LEVEL 32 MMOL/L (20-31); CHLORIDE LEVEL 101 MMOL/L (98-107); GLOMERULAR FILTRATION RATE > 60.0 (>45); GLUCOSE, FASTING 116 MG/DL (74-106); POTASSIUM SERUM 4.1 MMOL/L (3.5-5.1); SODIUM LEVEL 136 MMOL/L (136-145)
[2022-10-26] MEDS ORDERED: MIDAZOLAM INJ 2MG/2ML VIAL As Ordered ONE (13:08)
[2022-10-26] MEDS ORDERED: ONDANSETRON 4MG 2ML VIAL As Ordered ONE (13:09)
[2022-10-26] MEDS ORDERED: KETOROLAC 60MG 2ML VIAL As Ordered ONE (13:09)
[2022-10-26] MEDS ORDERED: fentaNYL 100 MCG/2 ML INJECTION As Ordered ONE (13:09)
[2022-10-26] MEDS ORDERED: SUGAMMADEX SODIUM 500 MG/5 ML VIAL (BRIDION) As Ordered ONE (13:09)
[2022-10-26] MEDS ORDERED: ROCURONIUM BROMIDE 50MG/5ML VIAL As Ordered ONE ×2 (13:09→14:24)
[2022-10-26] MEDS ORDERED: LIDOCAINE 2% 100MG/5ML SDV (FOR ANES.) As Ordered ONE (13:09)
[2022-10-26] MEDS ORDERED: propofoL 200 MG/20 ML VIAL As Ordered ONE ×2 (13:09→14:05)
[2022-10-26] MEDS ORDERED: BUPIVACAINE HCL 0.25% 10ML VIAL As Ordered ONE (13:35)
[2022-10-26] MEDS ORDERED: LIDOCAINE 1% SDV 30ML VIAL As Ordered ONE (13:36)
[2022-10-26] MEDS ORDERED: BUPIVACAINE HCL 0.25% 30ML VIAL As Ordered ONE (13:36)
[2022-10-26] MEDS ORDERED: BUPIVACAINE LIPOSOME/PF 1.3% 20ML VIAL (13.3MG/ML)(EXPAREL) As Ordered ONE (13:37)
[2022-10-26] MEDS ORDERED: ceFAZolin 1GM VIAL As Ordered ONE (14:19)
[2022-10-26] MEDS ORDERED: LR 1,000 ML IV SCH (17:00)
[2022-10-26] MEDS ORDERED: fentaNYL 100 MCG/2 ML INJECTION IV PRN (17:00)
[2022-10-26] MEDS ORDERED: oxyCODONE 5MG TAB PO PRN (17:00)
[2022-10-26] MEDS ORDERED: HYDROMORPHONE HCL 0.5 MG/ 0.5 ML SYRINGE IV PRN (17:00)
[2022-10-26] MEDS ORDERED: NEOSTIGMINE 10MG 10ML VIAL As Ordered ONE (17:01)
[2022-10-26] MEDS ORDERED: GLYCOPYRROLATE INJ 0.2 MG/ML 2 ML VIAL As Ordered ONE (17:01)
[2022-10-26] MEDS ORDERED: ACETAMINOPHEN 1000MG 100ML IV BAG As Ordered ONE (17:05)
[2022-10-26] MEDS ORDERED: BISACODYL 10MG SUPP PR ONE (17:30)
[2022-10-26] MEDS ORDERED: flumazeniL 0.5MG/5ML VIAL As Ordered ONE (17:32)
[2022-10-26] MEDS ORDERED: EXCEDRIN MIGRAINE TABLET PO PRN (17:55)
[2022-10-27] VITALS (7 sets, daily range): BP systolic 113–136; BP diastolic 57–74
[2022-10-27] MEDS: LR 1,000 ML IV SCH ×3 (00:32→23:07)
[2022-10-27] MEDS: IPRATROPIUM 0.5MG/ALBUTEROL 2.5MG INH SOL UD 3ML (DUONEB) NEB SCH ×4 (01:17→19:51)
[2022-10-27] MEDS: HEPARIN SOD (PORCINE) 5000UNITS/ML 1ML VIAL/SYRINGE SC SCH ×3 (05:05→21:43)
[2022-10-27 08:46] LABS: BASO % 0.3 % (0.0-1.0); EOS # 0.1 10^3/uL (0.0-0.5); EOS % 1.1 % (0.0-3.0); HEMATOCRIT 38.5 % (36.0-47.0); LYMPH # 1.3 10^3/uL (1.5-5.0); LYMPH % 12.1 % (24.0-44.0); MEAN CORPUSCULAR HEMOGLOBIN 29.6 pg (27.0-33.0); MEAN CORPUSCULAR HGB CONC 31.2 g/dl (32.0-36.5); MEAN CORPUSCULAR VOLUME 95.1 fl (80.0-96.0); MONO % 9.7 % (2.0-8.0); NEUTROPHILS # 7.9 10^3/uL (1.5-8.5); NEUTROPHILS % 76.5 % (36.0-66.0); PLATELET COUNT, AUTOMATED 177 10^3/uL (150-450); RED BLOOD COUNT 4.05 10^6/uL (4.00-5.40); WHITE BLOOD COUNT 10.3 10^3/uL (4.0-10.0)
[2022-10-27] MEDS: amLODIPine 5 MG TAB PO SCH (09:01)
[2022-10-27 09:14] LABS: BLOOD UREA NITROGEN 10 MG/DL (9-23); CALCIUM LEVEL 7.7 MG/DL (8.3-10.6); CARBON DIOXIDE LEVEL 33 MMOL/L (20-31); CHLORIDE LEVEL 102 MMOL/L (98-107); CREATININE FOR GFR 0.49 MG/DL (0.55-1.30); GLOMERULAR FILTRATION RATE > 60.0 (>45); GLUCOSE, FASTING 94 MG/DL (74-106); POTASSIUM SERUM 4.1 MMOL/L (3.5-5.1); SODIUM LEVEL 139 MMOL/L (136-145)
[2022-10-27 09:24] LABS: ABG BASE EXCESS 4.9 (-2.0-2.0); ABG HCO3 29.6 MEQ/L (22.0-26.0); ABG O2 SATURATION 93.2 % (95.0-99.0); ABG PARTIAL PRESSURE CO2 43.8 mmHg (35.0-45.0); ABG PARTIAL PRESSURE O2 61.8 mmHg (75.0-100.0); ABG STANDARD HCO3 28.8 MEQ/L (22.0-26.0); ABG TOTAL CO2 30.9 MEQ/L (23.0-31.0); ABG pH (ARTERIAL) 7.447 UNITS (7.350-7.450)
[2022-10-27] MEDS: ALVIMOPAN 12 MG CAPSULE (ENTEREG) PO SCH ×2 (10:41→21:43)
[2022-10-27] MEDS: MORPHINE 4 MG/ML 1ML VIAL IV PRN ×3 (14:24→22:07)
[2022-10-27] MEDS: predniSONE 20 MG TAB PO SCH (16:22)
[2022-10-27] MEDS: FLEET ENEMA PR SCH ×2 (16:23→23:05)
[2022-10-28] MEDS: IPRATROPIUM 0.5MG/ALBUTEROL 2.5MG INH SOL UD 3ML (DUONEB) NEB SCH ×4 (01:07→19:18)
[2022-10-28 05:30] VITALS: BP 134/75
[2022-10-28] MEDS: HEPARIN SOD (PORCINE) 5000UNITS/ML 1ML VIAL/SYRINGE SC SCH ×3 (05:45→22:15)
[2022-10-28] MEDS: MORPHINE 4 MG/ML 1ML VIAL IV PRN ×2 (05:46→15:52)
[2022-10-28 06:07] LABS: BASO % 0.2 % (0.0-1.0); EOS % 0.1 % (0.0-3.0); HEMATOCRIT 37.2 % (36.0-47.0); HEMOGLOBIN 11.8 g/dl (12.0-15.5); LYMPH # 1.1 10^3/uL (1.5-5.0); LYMPH % 11.5 % (24.0-44.0); MEAN CORPUSCULAR HEMOGLOBIN 30.1 pg (27.0-33.0); MEAN CORPUSCULAR HGB CONC 31.7 g/dl (32.0-36.5); MEAN CORPUSCULAR VOLUME 94.9 fl (80.0-96.0); MONO # 0.8 10^3/uL (0.0-0.8); MONO % 8.2 % (2.0-8.0); NEUTROPHILS # 7.3 10^3/uL (1.5-8.5); NEUTROPHILS % 79.6 % (36.0-66.0); PLATELET COUNT, AUTOMATED 196 10^3/uL (150-450); RED BLOOD COUNT 3.92 10^6/uL (4.00-5.40); WHITE BLOOD COUNT 9.2 10^3/uL (4.0-10.0)
[2022-10-28 06:27] LABS: BLOOD UREA NITROGEN 8 MG/DL (9-23); CALCIUM LEVEL 8.1 MG/DL (8.3-10.6); CARBON DIOXIDE LEVEL 33 MMOL/L (20-31); CHLORIDE LEVEL 99 MMOL/L (98-107); GLOMERULAR FILTRATION RATE > 60.0 (>45); GLUCOSE, FASTING 130 MG/DL (74-106); POTASSIUM SERUM 3.8 MMOL/L (3.5-5.1); SODIUM LEVEL 137 MMOL/L (136-145)
[2022-10-28] MEDS: FLEET ENEMA PR SCH ×3 (09:00→23:20)
[2022-10-28] MEDS: ALVIMOPAN 12 MG CAPSULE (ENTEREG) PO SCH ×2 (09:10→22:14)
[2022-10-28] MEDS: predniSONE 20 MG TAB PO SCH (09:11)
[2022-10-28] MEDS: amLODIPine 5 MG TAB PO SCH (09:14)
[2022-10-28] MEDS ORDERED: BISACODYL 10MG SUPP PR ONE (11:15)
[2022-10-28] MEDS: MIRALAX *UNIT DOSE* 17GM PACKET PO SCH (11:56)
[2022-10-28] MEDS: LR 1,000 ML IV SCH ×2 (12:23→23:31)
[2022-10-28] MEDS ORDERED: POLYETHYLENE GLYCOL (MIRALAX) 238GM BOTTLE PO ONE (13:00)
[2022-10-28 14:00] VITALS: BP 146/73
[2022-10-28 20:30] VITALS: BP 141/73
[2022-10-29] MEDS: MORPHINE 4 MG/ML 1ML VIAL IV PRN ×4 (00:06→23:30)
[2022-10-29] MEDS: IPRATROPIUM 0.5MG/ALBUTEROL 2.5MG INH SOL UD 3ML (DUONEB) NEB SCH ×4 (02:06→19:40)
[2022-10-29 05:43] VITALS: BP 135/76
[2022-10-29] MEDS: HEPARIN SOD (PORCINE) 5000UNITS/ML 1ML VIAL/SYRINGE SC SCH ×3 (05:53→21:50)
[2022-10-29 06:34] LABS: BASO % 0.4 % (0.0-1.0); EOS # 0.2 10^3/uL (0.0-0.5); HEMATOCRIT 36.8 % (36.0-47.0); HEMOGLOBIN 11.5 g/dl (12.0-15.5); LYMPH % 25.8 % (24.0-44.0); MEAN CORPUSCULAR HEMOGLOBIN 29.9 pg (27.0-33.0); MEAN CORPUSCULAR HGB CONC 31.3 g/dl (32.0-36.5); MEAN CORPUSCULAR VOLUME 95.8 fl (80.0-96.0); MONO # 0.8 10^3/uL (0.0-0.8); MONO % 10.5 % (2.0-8.0); NEUTROPHILS # 4.6 10^3/uL (1.5-8.5); NEUTROPHILS % 59.9 % (36.0-66.0); PLATELET COUNT, AUTOMATED 199 10^3/uL (150-450); RED BLOOD COUNT 3.84 10^6/uL (4.00-5.40); WHITE BLOOD COUNT 7.7 10^3/uL (4.0-10.0)
[2022-10-29 06:57] LABS: BLOOD UREA NITROGEN 8 MG/DL (9-23); CALCIUM LEVEL 7.4 MG/DL (8.3-10.6); CARBON DIOXIDE LEVEL 34 MMOL/L (20-31); CHLORIDE LEVEL 103 MMOL/L (98-107); CREATININE FOR GFR 0.49 MG/DL (0.55-1.30); GLOMERULAR FILTRATION RATE > 60.0 (>45); GLUCOSE, FASTING 95 MG/DL (74-106); POTASSIUM SERUM 3.6 MMOL/L (3.5-5.1); SODIUM LEVEL 141 MMOL/L (136-145)
[2022-10-29 07:35] VITALS: O2SAT 94
[2022-10-29] MEDS: ALVIMOPAN 12 MG CAPSULE (ENTEREG) PO SCH ×2 (08:19→21:50)
[2022-10-29] MEDS: predniSONE 20 MG TAB PO SCH (08:20)
[2022-10-29] MEDS: amLODIPine 5 MG TAB PO SCH (08:20)
[2022-10-29] MEDS: MIRALAX *UNIT DOSE* 17GM PACKET PO SCH (08:20)
[2022-10-29] MEDS ORDERED: FUROSEMIDE 20MG/2ML VIAL IV ONE (10:30)
[2022-10-29 14:00] VITALS: BP 136/76
[2022-10-29 14:24] VITALS: O2SAT 93
[2022-10-29 20:00] VITALS: BP 132/74
[2022-10-30] MEDS: IPRATROPIUM 0.5MG/ALBUTEROL 2.5MG INH SOL UD 3ML (DUONEB) NEB SCH ×4 (01:22→18:55)
[2022-10-30 06:00] VITALS: BP 135/74
[2022-10-30] MEDS: HEPARIN SOD (PORCINE) 5000UNITS/ML 1ML VIAL/SYRINGE SC SCH ×3 (06:10→21:43)
[2022-10-30 06:41] LABS: BASO % 0.5 % (0.0-1.0); EOS # 0.2 10^3/uL (0.0-0.5); EOS % 2.3 % (0.0-3.0); HEMATOCRIT 36.8 % (36.0-47.0); HEMOGLOBIN 11.7 g/dl (12.0-15.5); LYMPH # 2.2 10^3/uL (1.5-5.0); MEAN CORPUSCULAR HEMOGLOBIN 29.9 pg (27.0-33.0); MEAN CORPUSCULAR HGB CONC 31.8 g/dl (32.0-36.5); MEAN CORPUSCULAR VOLUME 94.1 fl (80.0-96.0); MONO # 0.7 10^3/uL (0.0-0.8); MONO % 9.6 % (2.0-8.0); NEUTROPHILS # 4.3 10^3/uL (1.5-8.5); NEUTROPHILS % 58.1 % (36.0-66.0); PLATELET COUNT, AUTOMATED 215 10^3/uL (150-450); RED BLOOD COUNT 3.91 10^6/uL (4.00-5.40); WHITE BLOOD COUNT 7.4 10^3/uL (4.0-10.0)
[2022-10-30 07:00] LABS: BLOOD UREA NITROGEN 6 MG/DL (9-23); CALCIUM LEVEL 8.1 MG/DL (8.3-10.6); CARBON DIOXIDE LEVEL 32 MMOL/L (20-31); CHLORIDE LEVEL 102 MMOL/L (98-107); CREATININE FOR GFR 0.45 MG/DL (0.55-1.30); GLOMERULAR FILTRATION RATE > 60.0 (>45); GLUCOSE, FASTING 99 MG/DL (74-106); POTASSIUM SERUM 3.2 MMOL/L (3.5-5.1); SODIUM LEVEL 141 MMOL/L (136-145)
[2022-10-30] MEDS: predniSONE 20 MG TAB PO SCH (08:12)
[2022-10-30] MEDS: ALVIMOPAN 12 MG CAPSULE (ENTEREG) PO SCH ×2 (08:12→21:32)
[2022-10-30] MEDS: amLODIPine 5 MG TAB PO SCH (08:12)
[2022-10-30] MEDS: MIRALAX *UNIT DOSE* 17GM PACKET PO SCH (08:13)
[2022-10-30] MEDS ORDERED: KCL 10MEQ/100ML SWI (KRUN) 10 MEQ in IV 1 EA IV SCH (09:00)
[2022-10-30] MEDS ORDERED: POTASSIUM CHLORIDE 10MEQ SR TABLET PO ONE (09:00)
[2022-10-30] MEDS ORDERED: NORCO, ANEXSIA 5/325MG TABLET (HYDROcodone/ACETAMINOPHEN) PO PRN (09:10)
[2022-10-30] MEDS ORDERED: IPRAINH INH (12:27)
[2022-10-30] MEDS ORDERED: PRED20TA PO (12:27)
[2022-10-30] MEDS ORDERED: MIRA1POW3 PO (12:27)
[2022-10-30] MEDS ORDERED: SPIR1CAP INH (12:58)
[2022-10-30 14:00] VITALS: BP 138/72
[2022-10-30] MEDS: ONDANSETRON 4MG 2ML VIAL IV PRN (20:24)
[2022-10-30 22:00] VITALS: BP 133/72
[2022-10-31] MEDS: IPRATROPIUM 0.5MG/ALBUTEROL 2.5MG INH SOL UD 3ML (DUONEB) NEB SCH ×2 (01:42→07:55)
[2022-10-31] MEDS: HEPARIN SOD (PORCINE) 5000UNITS/ML 1ML VIAL/SYRINGE SC SCH (05:15)
[2022-10-31 05:41] LABS: BASO % 0.4 % (0.0-1.0); EOS # 0.2 10^3/uL (0.0-0.5); EOS % 1.9 % (0.0-3.0); HEMATOCRIT 37.8 % (36.0-47.0); HEMOGLOBIN 12.1 g/dl (12.0-15.5); LYMPH # 2.1 10^3/uL (1.5-5.0); LYMPH % 25.7 % (24.0-44.0); MEAN CORPUSCULAR VOLUME 93.6 fl (80.0-96.0); MONO # 0.8 10^3/uL (0.0-0.8); MONO % 10.1 % (2.0-8.0); NEUTROPHILS % 61.5 % (36.0-66.0); PLATELET COUNT, AUTOMATED 216 10^3/uL (150-450); RED BLOOD COUNT 4.04 10^6/uL (4.00-5.40); WHITE BLOOD COUNT 8.1 10^3/uL (4.0-10.0)
[2022-10-31 06:00] VITALS: BP 144/79
[2022-10-31 06:12] LABS: BLOOD UREA NITROGEN < 5 MG/DL (9-23); CALCIUM LEVEL 8.1 MG/DL (8.3-10.6); CARBON DIOXIDE LEVEL 30 MMOL/L (20-31); CHLORIDE LEVEL 103 MMOL/L (98-107); GLOMERULAR FILTRATION RATE > 60.0 (>45); GLUCOSE, FASTING 108 MG/DL (74-106); POTASSIUM SERUM 3.6 MMOL/L (3.5-5.1); SODIUM LEVEL 141 MMOL/L (136-145)
[2022-10-31 08:43] VITALS: BP 144/79
[2022-10-31] MEDS: amLODIPine 5 MG TAB PO SCH (08:43)
[2022-10-31] MEDS: ALVIMOPAN 12 MG CAPSULE (ENTEREG) PO SCH (08:43)
[2022-10-31] MEDS: predniSONE 20 MG TAB PO SCH (08:43)
[2022-10-31] MEDS: MIRALAX *UNIT DOSE* 17GM PACKET PO SCH (08:43)
== END 2022-10-31 11:05 | disposition home or self-care (01) | DRG 227 ==
LOC: M ED 10:30 → M ED INP 14:49 → ENRESERV 15:38 → M MS5PR 16:35 → M PCU 10-26 19:55 → M MSPAV 10-27 13:10
PROVIDERS: ADMIT Internal Medicine; ATTEND Internal Medicine
PROC: 0WUF0JZ Supplement Abdominal Wall with Synthetic Substitute, Open Approach (ICD-10-PCS; principal; 2022-10-26 07:30)
DX: K43.6 Other and unspecified ventral hernia with obstruction, without gangrene (principal); J96.01 Acute respiratory failure with hypoxia; J44.1 Chronic obstructive pulmonary disease with (acute) exacerbation; E66.01 Morbid (severe) obesity due to excess calories; Z68.41 Body mass index [BMI] 40.0-44.9, adult; I10 Essential (primary) hypertension; F17.200 Nicotine dependence, unspecified, uncomplicated; D72.829 Elevated white blood cell count, unspecified; Z79.899 Other long term (current) drug therapy; Z66 Do not resuscitate; Z53.31 Laparoscopic surgical procedure converted to open procedure

== ENCOUNTER → 2022-11-30 | Outpatient (CLI) | payer OTHER ==
[~2022-11-30] MED LIST changes: +ALBU8.5H INH; +AMLO1TAB24 PO; +EXCETAB32 PO; +IPRAINH INH; +MIRA1POW3 PO; +PRED20TA PO; +SPIR1CAP INH
[2022-11-30 10:39] LABS: BASO # 0.1 10^3/uL (0.0-0.2); BASO % 0.5 % (0.0-1.0); EOS # 0.1 10^3/uL (0.0-0.5); EOS % 0.7 % (0.0-3.0); HEMATOCRIT 42.6 % (36.0-47.0); HEMOGLOBIN 13.1 g/dl (12.0-15.5); LYMPH % 18.8 % (24.0-44.0); MEAN CORPUSCULAR HEMOGLOBIN 29.6 pg (27.0-33.0); MEAN CORPUSCULAR HGB CONC 30.8 g/dl (32.0-36.5); MEAN CORPUSCULAR VOLUME 96.4 fl (80.0-96.0); MONO # 0.9 10^3/uL (0.0-0.8); MONO % 8.1 % (2.0-8.0); NEUTROPHILS # 7.8 10^3/uL (1.5-8.5); NEUTROPHILS % 71.6 % (36.0-66.0); PLATELET COUNT, AUTOMATED 313 10^3/uL (150-450); RED BLOOD COUNT 4.42 10^6/uL (4.00-5.40); WHITE BLOOD COUNT 10.8 10^3/uL (4.0-10.0)
[2022-11-30 11:14] LABS: ALBUMIN 3.3 G/DL (3.2-5.2); ALKALINE PHOSPHATASE 70 U/L (46-116); ALT/SGPT 17 U/L (7.0-40); AST/SGOT 15 U/L (<34); BILIRUBIN,TOTAL 0.5 MG/DL (0.3-1.2); BLOOD UREA NITROGEN 8 MG/DL (9-23); CALCIUM LEVEL 8.9 MG/DL (8.3-10.6); CARBON DIOXIDE LEVEL 32 MMOL/L (20-31); CHLORIDE LEVEL 101 MMOL/L (98-107); CREATININE FOR GFR 0.55 MG/DL (0.55-1.30); GLOMERULAR FILTRATION RATE > 60.0 (>45); GLUCOSE, FASTING 112 MG/DL (74-106); MAGNESIUM LEVEL 1.8 MG/DL (1.8-2.4); POTASSIUM SERUM 4.4 MMOL/L (3.5-5.1); SODIUM LEVEL 139 MMOL/L (136-145); TOTAL PROTEIN 6.9 G/DL (5.7-8.2)
[2022-11-30 11:15] LABS: THYROID STIMULATING HORMONE 3.401 uIU/ML (0.55-4.78)
[2022-11-30 11:16] LABS: FREE T4 0.86 NG/DL (0.89-1.76)
== END ==
LOC: M WUC 08:09
PROVIDERS: ATTEND Physician Assistant
DX: J44.9 Chronic obstructive pulmonary disease, unspecified (principal); D72.829 Elevated white blood cell count, unspecified; R79.89 Other specified abnormal findings of blood chemistry

== ENCOUNTER 2023-12-22 20:02 | Inpatient (IN) | payer OTHER ==
[~2023-12-22] VITALS: Ht 154.9 cm; Wt 104.1 kg
[~2023-12-22 20:02] MED LIST changes: -MIRA1POW3 PO; +MIRA33506 PO
[2023-12-22 20:49] LABS: VENOUS BASE EXCESS 3.1 (-2.0-2.0); VENOUS O2 SATURATION 95.3 % (60.0-80.0); VENOUS PARTIAL PRESSURE CO2 61.4 mmHg (38.0-50.0); VENOUS PARTIAL PRESSURE O2 85.5 mmHg (30.0-50.0); VENOUS PH 7.321 UNITS (7.330-7.430); VENOUS STANDARD HCO3 27.2 MMOL/L; VENOUS TOTAL CO2 32.9 MMOL/L (24.0-28.0)
[2023-12-22 20:56] LABS: HEMATOCRIT 45.8 % (36.0-47.0); HEMOGLOBIN 13.8 g/dl (12.0-15.5); MEAN CORPUSCULAR HEMOGLOBIN 26.6 pg (27.0-33.0); MEAN CORPUSCULAR HGB CONC 30.1 g/dl (32.0-36.5); MEAN CORPUSCULAR VOLUME 88.4 fl (80.0-96.0); PLATELET COUNT, AUTOMATED 148 10^3/uL (150-450); RED BLOOD COUNT 5.18 10^6/uL (4.00-5.40); WHITE BLOOD COUNT 6.7 10^3/uL (4.0-10.0)
[2023-12-22 21:14] LABS: CK-MB VALUE MASS 1.2 NG/ML (<3.6); CPK CREATINE PHOSPHOKINASE 69 U/L (34-145); MB/CK RELATIVE INDEX 1.73 (< OR =4)
[2023-12-22 21:15] LABS: ALBUMIN 3.2 G/DL (3.2-5.2); ALKALINE PHOSPHATASE 72 U/L (46-116); ALT/SGPT 45 U/L (7.0-40); AST/SGOT 54 U/L (<34); BILIRUBIN,DIRECT 0.5 MG/DL (<0.4); BILIRUBIN,TOTAL 0.9 MG/DL (0.3-1.2); BLOOD UREA NITROGEN 24 MG/DL (9-23); CALCIUM LEVEL 8.4 MG/DL (8.3-10.6); CARBON DIOXIDE LEVEL 33 MMOL/L (20-31); CHLORIDE LEVEL 99 MMOL/L (98-107); CREATININE FOR GFR 0.67 MG/DL (0.55-1.30); GLOMERULAR FILTRATION RATE > 60.0 (>45); GLUCOSE, FASTING 167 MG/DL (74-106); POTASSIUM SERUM 4.2 MMOL/L (3.5-5.1); SODIUM LEVEL 139 MMOL/L (136-145); TOTAL PROTEIN 6.8 G/DL (5.7-8.2)
[2023-12-22 21:22] LABS: ATYPICAL LYMPH 5 % (0-5); BASOPHILS 1 % (0-1); LYMPHOCYTES 15 % (16-44); MONOCYTES 8 % (0-5); NEUTROPHILS 67 % (28-66); NUCLEATED RED BLOOD CELL 1 % (0-0)
[2023-12-22 21:23] LABS: ANISOCYTOSIS 1+; PLATELET ESTIMATE DECREASED (NORMAL); POLYCHROMASIA 1+
[2023-12-22] MEDS: methylPREDNISolone 125MG 2ML VIAL IV ONE (21:24)
[2023-12-22] MEDS: IPRATROPIUM 0.5MG/ALBUTEROL 2.5MG INH SOL UD 3ML (DUONEB) NEB SCH (21:39)
[2023-12-22 21:52] LABS: BASO % 0.4 % (0.0-1.0); HEMATOCRIT 45.6 % (36.0-47.0); HEMOGLOBIN 13.8 g/dl (12.0-15.5); LYMPH # 1.3 10^3/uL (1.5-5.0); LYMPH % 17.8 % (24.0-44.0); MEAN CORPUSCULAR HGB CONC 30.3 g/dl (32.0-36.5); MEAN CORPUSCULAR VOLUME 89.1 fl (80.0-96.0); MONO # 0.8 10^3/uL (0.0-0.8); MONO % 11.2 % (2.0-8.0); NEUTROPHILS # 4.9 10^3/uL (1.5-8.5); NEUTROPHILS % 69.7 % (36.0-66.0); PLATELET COUNT, AUTOMATED 147 10^3/uL (150-450); RED BLOOD COUNT 5.12 10^6/uL (4.00-5.40)
[2023-12-22 22:10] LABS: CK-MB VALUE MASS 1.6 NG/ML (<3.6)
[2023-12-22] MEDS ORDERED: ISOVUE-370 76% 100ML VIAL As Ordered ONE (22:25)
[2023-12-22 23:51] LABS: ABG BASE EXCESS 1.5 (-2.0-2.0); ABG HCO3 32.2 MMOL/L (22.0-26.0); ABG O2 SATURATION 93.7 % (95.0-99.0); ABG PARTIAL PRESSURE O2 83.1 mmHg (75.0-100.0); ABG STANDARD HCO3 25.7 MMOL/L. (22.0-26.0); ABG TOTAL CO2 34.7 MMOL/L (23.0-31.0); ABG pH (ARTERIAL) 7.212 UNITS (7.350-7.450)
[2023-12-22 23:52] LABS: ABG PARTIAL PRESSURE CO2 81.9 mmHg (35.0-45.0)
[2023-12-23] VITALS (17 sets, daily range): BP systolic 123–145; BP diastolic 68–119; TEMP 98.3–100; O2SAT 91–97
[2023-12-23 01:18] LABS: MB/CK RELATIVE INDEX 1.98 (< OR =4)
[2023-12-23 01:31] LABS: ABG BASE EXCESS 3.7 (-2.0-2.0); ABG HCO3 34.1 MMOL/L (22.0-26.0); ABG O2 SATURATION 96.8 % (95.0-99.0); ABG PARTIAL PRESSURE O2 101.2 mmHg (75.0-100.0); ABG STANDARD HCO3 27.8 MMOL/L. (22.0-26.0); ABG TOTAL CO2 36.6 MMOL/L (23.0-31.0)
[2023-12-23 01:32] LABS: ABG PARTIAL PRESSURE CO2 81.5 mmHg (35.0-45.0)
[2023-12-23] MEDS: IPRATROPIUM 0.5MG/ALBUTEROL 2.5MG INH SOL UD 3ML (DUONEB) NEB ONE (01:36)
[2023-12-23] MEDS ORDERED: TIOT18CA INH (02:44)
[2023-12-23] MEDS ORDERED: HOME MED LIST COMPLETE! XX SCH (02:45)
[2023-12-23] MEDS ORDERED: ALBUTEROL SULFATE 2.5MG/0.5ML INH NEB SOLN NEB PRN (03:15)
[2023-12-23 04:41] LABS: VENOUS BASE EXCESS 4.7 (-2.0-2.0); VENOUS HCO3 33.9 MMOL/L (23.0-27.0); VENOUS O2 SATURATION 98.3 % (60.0-80.0); VENOUS PARTIAL PRESSURE CO2 72.2 mmHg (38.0-50.0); VENOUS PARTIAL PRESSURE O2 132.9 mmHg (30.0-50.0); VENOUS PH 7.289 UNITS (7.330-7.430); VENOUS STANDARD HCO3 28.7 MMOL/L; VENOUS TOTAL CO2 36.1 MMOL/L (24.0-28.0)
[2023-12-23 04:47] LABS: HEMATOCRIT 46.5 % (36.0-47.0); HEMOGLOBIN 13.7 g/dl (12.0-15.5); MEAN CORPUSCULAR HEMOGLOBIN 26.6 pg (27.0-33.0); MEAN CORPUSCULAR HGB CONC 29.5 g/dl (32.0-36.5); MEAN CORPUSCULAR VOLUME 90.3 fl (80.0-96.0); PLATELET COUNT, AUTOMATED 150 10^3/uL (150-450); RED BLOOD COUNT 5.15 10^6/uL (4.00-5.40)
[2023-12-23] MEDS: methylPREDNISolone 40MG 1ML VIAL IV SCH (05:15)
[2023-12-23 05:16] LABS: ALBUMIN 3.2 G/DL (3.2-5.2); ALKALINE PHOSPHATASE 69 U/L (46-116); ALT/SGPT 41 U/L (7.0-40); AST/SGOT 47 U/L (<34); BILIRUBIN,TOTAL 0.6 MG/DL (0.3-1.2); BLOOD UREA NITROGEN 28 MG/DL (9-23); CALCIUM LEVEL 8.6 MG/DL (8.3-10.6); CARBON DIOXIDE LEVEL 33 MMOL/L (20-31); CHLORIDE LEVEL 98 MMOL/L (98-107); CREATININE FOR GFR 0.77 MG/DL (0.55-1.30); GLOMERULAR FILTRATION RATE > 60.0 (>45); GLUCOSE, FASTING 171 MG/DL (74-106); POTASSIUM SERUM 4.6 MMOL/L (3.5-5.1); SODIUM LEVEL 138 MMOL/L (136-145); TOTAL PROTEIN 6.7 G/DL (5.7-8.2)
[2023-12-23 06:37] LABS: VENOUS BASE EXCESS 4.4 (-2.0-2.0); VENOUS O2 SATURATION 99.4 % (60.0-80.0); VENOUS PARTIAL PRESSURE CO2 67.1 mmHg (38.0-50.0); VENOUS PARTIAL PRESSURE O2 211.3 mmHg (30.0-50.0); VENOUS STANDARD HCO3 28.5 MMOL/L; VENOUS TOTAL CO2 35.1 MMOL/L (24.0-28.0)
[2023-12-23] MEDS: IPRATROPIUM 0.5MG/ALBUTEROL 2.5MG INH SOL UD 3ML (DUONEB) NEB SCH (08:04)
[2023-12-23] MEDS: SYMBICORT 160/4.5MCG INHALER 6GM INH SCH (08:04)
[2023-12-23] MEDS: ENOXAPARIN 40MG/0.4ML SYRINGE (J1650 PER 10MG) SC SCH ×2 (08:36→20:16)
[2023-12-23] MEDS: amLODIPine 5 MG TAB PO SCH (08:37)
[2023-12-23] MEDS: PANTOPRAZOLE 40MG VIAL IV SCH (08:37)
[2023-12-23] MEDS: LR 1,000 ML IV SCH (10:15)
[2023-12-23 17:02] LABS: VENOUS BASE EXCESS 3.2 (-2.0-2.0); VENOUS HCO3 34.5 MMOL/L (23.0-27.0); VENOUS PARTIAL PRESSURE CO2 90.1 mmHg (38.0-50.0); VENOUS PARTIAL PRESSURE O2 183.3 mmHg (30.0-50.0); VENOUS PH 7.201 UNITS (7.330-7.430); VENOUS STANDARD HCO3 27.4 MMOL/L; VENOUS TOTAL CO2 37.3 MMOL/L (24.0-28.0)
[2023-12-23] MEDS: FUROSEMIDE 20MG/2ML VIAL IV ONE (17:33)
[2023-12-23 20:30] LABS: VENOUS HCO3 33.5 MMOL/L (23.0-27.0); VENOUS O2 SATURATION 99.4 % (60.0-80.0); VENOUS PARTIAL PRESSURE CO2 74.4 mmHg (38.0-50.0); VENOUS PARTIAL PRESSURE O2 206.9 mmHg (30.0-50.0); VENOUS PH 7.271 UNITS (7.330-7.430); VENOUS STANDARD HCO3 28.1 MMOL/L; VENOUS TOTAL CO2 35.8 MMOL/L (24.0-28.0)
[2023-12-24] VITALS (23 sets, daily range): BP systolic 123–164; BP diastolic 71–91; TEMP 97.2–99; O2SAT 90–98
[2023-12-24 05:02] LABS: VENOUS BASE EXCESS 5.2 (-2.0-2.0); VENOUS HCO3 34.8 MMOL/L (23.0-27.0); VENOUS O2 SATURATION 98.9 % (60.0-80.0); VENOUS PARTIAL PRESSURE O2 160.3 mmHg (30.0-50.0); VENOUS PH 7.273 UNITS (7.330-7.430); VENOUS STANDARD HCO3 29.2 MMOL/L; VENOUS TOTAL CO2 37.2 MMOL/L (24.0-28.0)
[2023-12-24 05:27] LABS: BLOOD UREA NITROGEN 35 MG/DL (9-23); CALCIUM LEVEL 8.5 MG/DL (8.3-10.6); CARBON DIOXIDE LEVEL 37 MMOL/L (20-31); CHLORIDE LEVEL 98 MMOL/L (98-107); CREATININE FOR GFR 0.66 MG/DL (0.55-1.30); GLOMERULAR FILTRATION RATE > 60.0 (>45); GLUCOSE, FASTING 159 MG/DL (74-106); POTASSIUM SERUM 4.6 MMOL/L (3.5-5.1); SODIUM LEVEL 139 MMOL/L (136-145)
[2023-12-24] MEDS: MOM 30ML SUSPENSION UDC PO PRN (08:05)
[2023-12-24 08:09] LABS: MAGNESIUM LEVEL 2.2 MG/DL (1.8-2.4); PHOSPHORUS LEVEL 4.3 MG/DL (2.4-5.1)
[2023-12-24] MEDS: ACETAMINOPHEN TAB 650MG DOSE (2X325MG) PO PRN (16:37)
[2023-12-25] VITALS (22 sets, daily range): BP systolic 115–152; BP diastolic 65–84; TEMP 97–98.5; O2SAT 88–98
[2023-12-25 04:09] LABS: VENOUS BASE EXCESS 9.8 (-2.0-2.0); VENOUS HCO3 34.4 MMOL/L (23.0-27.0); VENOUS O2 SATURATION 99.5 % (60.0-80.0); VENOUS PARTIAL PRESSURE CO2 46.3 mmHg (38.0-50.0); VENOUS PARTIAL PRESSURE O2 198.5 mmHg (30.0-50.0); VENOUS PH 7.489 UNITS (7.330-7.430); VENOUS STANDARD HCO3 33.6 MMOL/L; VENOUS TOTAL CO2 35.8 MMOL/L (24.0-28.0)
[2023-12-25] MEDS: predniSONE 20 MG TAB PO SCH (08:18)
[2023-12-25] MEDS: TIOTROPIUM INHALER/CAPSULE (SPIRIVA) INH SCH (08:55)
[2023-12-25 16:11] LABS: PROCALCITONIN 0.16 ng/ml
[2023-12-26] VITALS (13 sets, daily range): BP systolic 118–124; BP diastolic 64–72; TEMP 97.6–97.8; O2SAT 86–98
[2023-12-26 06:21] LABS: VENOUS BASE EXCESS 7.6 (-2.0-2.0); VENOUS HCO3 33.7 MMOL/L (23.0-27.0); VENOUS O2 SATURATION 95.9 % (60.0-80.0); VENOUS PARTIAL PRESSURE CO2 53.5 mmHg (38.0-50.0); VENOUS PARTIAL PRESSURE O2 81.4 mmHg (30.0-50.0); VENOUS PH 7.417 UNITS (7.330-7.430); VENOUS STANDARD HCO3 31.4 MMOL/L; VENOUS TOTAL CO2 35.3 MMOL/L (24.0-28.0)
[2023-12-26] MEDS ORDERED: IPRA0.00 INH (10:38)
[2023-12-26] MEDS ORDERED: SYMB16INH INH (10:38)
[2023-12-26] MEDS ORDERED: PRED20TA PO (10:38)
== END 2023-12-26 14:15 | disposition home health service (06) | DRG 133 ==
LOC: M ED 20:02 → M ED INP 12-23 03:12 → M ICU 12-23 04:00 → M PCU 12-25 17:33
PROVIDERS: ADMIT Family Medicine; ATTEND Student in an Organized Health Care Education/Training Program
DX: J96.22 Acute and chronic respiratory failure with hypercapnia (principal); I21.A1 Myocardial infarction type 2; J18.9 Pneumonia, unspecified organism; I27.20 Pulmonary hypertension, unspecified; J44.1 Chronic obstructive pulmonary disease with (acute) exacerbation; Z68.41 Body mass index [BMI] 40.0-44.9, adult; E66.9 Obesity, unspecified; I10 Essential (primary) hypertension; Z79.899 Other long term (current) drug therapy; J96.01 Acute respiratory failure with hypoxia

== ENCOUNTER → 2024-01-17 | Outpatient (CLI) | payer OTHER ==
[~2024-01-17] MED LIST changes: +IPRA0.00 INH; +SYMB16INH INH; +TIOT18CA INH
== END ==
LOC: M RAD 06:56
PROVIDERS: ATTEND Nurse Practitioner Family
DX: M79.89 Other specified soft tissue disorders (principal)

== ENCOUNTER → 2024-03-13 | Outpatient (CLI) | payer OTHER ==
[2024-03-13 17:35] LABS: BASO # 0.1 10^3/uL (0.0-0.2); BASO % 0.9 % (0.0-1.0); EOS # 0.1 10^3/uL (0.0-0.5); EOS % 1.8 % (0.0-3.0); HEMATOCRIT 42.8 % (36.0-47.0); HEMOGLOBIN 12.9 g/dl (12.0-15.5); LYMPH # 2.1 10^3/uL (1.5-5.0); MEAN CORPUSCULAR HEMOGLOBIN 27.1 pg (27.0-33.0); MEAN CORPUSCULAR HGB CONC 30.1 g/dl (32.0-36.5); MEAN CORPUSCULAR VOLUME 89.9 fl (80.0-96.0); MONO # 0.6 10^3/uL (0.0-0.8); MONO % 8.1 % (2.0-8.0); NEUTROPHILS # 4.1 10^3/uL (1.5-8.5); NEUTROPHILS % 58.9 % (36.0-66.0); PLATELET COUNT, AUTOMATED 238 10^3/uL (150-450); RED BLOOD COUNT 4.76 10^6/uL (4.00-5.40)
[2024-03-13 18:05] LABS: HEMOGLOBIN A1c 6.2 % (4.0-6.0)
[2024-03-13 18:08] LABS: ALBUMIN 3.9 G/DL (3.2-5.2); ALKALINE PHOSPHATASE 65 U/L (46-116); ALT/SGPT 17 U/L (7.0-40); AST/SGOT 15 U/L (<34); BILIRUBIN,TOTAL 0.4 MG/DL (0.3-1.2); BLOOD UREA NITROGEN 13 MG/DL (9-23); CALCIUM LEVEL 9.2 MG/DL (8.3-10.6); CARBON DIOXIDE LEVEL 31 MMOL/L (20-31); CHLORIDE LEVEL 103 MMOL/L (98-107); CHOLESTEROL LEVEL 171 MG/DL (<200); CHOLESTEROL RISK RATIO 3.88 (<5); CREATININE FOR GFR 0.58 MG/DL (0.55-1.30); GLOMERULAR FILTRATION RATE > 60.0 (>45); GLUCOSE, FASTING 123 MG/DL (74-106); SODIUM LEVEL 141 MMOL/L (136-145); TOTAL PROTEIN 6.9 G/DL (5.7-8.2); TRIGLYCERIDES LEVEL 120 MG/DL (<150)
[2024-03-13 18:10] LABS: THYROID STIMULATING HORMONE 3.873 uIU/ML (0.55-4.78)
== END ==
LOC: M WUC 10:36
PROVIDERS: ATTEND Nurse Practitioner Family
DX: E66.9 Obesity, unspecified (principal); R53.83 Other fatigue

== ENCOUNTER → 2024-06-18 | Outpatient (REF) | payer OTHER ==
[2024-06-18 14:20] LABS: ALBUMIN 3.5 G/DL (3.2-5.2); ALKALINE PHOSPHATASE 65 U/L (35-104); ALT/SGPT 12 U/L (7.0-40); AST/SGOT < 8 U/L (<34); BILIRUBIN,DIRECT 0.2 MG/DL (<0.4); BILIRUBIN,TOTAL 0.4 MG/DL (0.3-1.2); CHOLESTEROL LEVEL 119 MG/DL (<200); CHOLESTEROL RISK RATIO 2.69 (<5); HDL CHOLESTEROL 44.1 MG/DL (>40); LDL CHOLESTEROL 54.9 MG/DL (<100); NON-HDL-C 74.9 MG/DL; TOTAL PROTEIN 6.8 G/DL (5.7-8.2); TRIGLYCERIDES LEVEL 100 MG/DL (<150)
[2024-06-18 14:30] LABS: HEMOGLOBIN A1c 6.1 % (4.0-6.0)
== END ==
LOC: M LAB REF 13:23
PROVIDERS: ATTEND Nurse Practitioner Family
DX: E78.2 Mixed hyperlipidemia (principal); R73.03 Prediabetes

== ENCOUNTER → 2024-12-16 | Outpatient (CLI) | payer OTHER | LOC: M SLEEP HO 10:29 | PROVIDERS: ATTEND Internal Medicine Cardiovascular Disease | DX: I27.81 Cor pulmonale (chronic) (principal); R06.83 Snoring ==

== ENCOUNTER → 2024-12-31 | Outpatient (CLI) | payer OTHER ==
[2024-12-31 13:04] LABS: ALBUMIN 3.7 G/DL (3.2-5.2); BLOOD UREA NITROGEN 7 MG/DL (9-23); CALCIUM LEVEL 8.7 MG/DL (8.3-10.6); CARBON DIOXIDE LEVEL 31 MMOL/L (20-31); CHLORIDE LEVEL 103 MMOL/L (98-107); CREATININE FOR GFR 0.52 MG/DL (0.55-1.30); GLOMERULAR FILTRATION RATE > 90.0 (>45); GLUCOSE, FASTING 120 MG/DL (74-106); PHOSPHORUS LEVEL 3.5 MG/DL (2.4-5.1); POTASSIUM SERUM 3.9 MMOL/L (3.5-5.1); SODIUM LEVEL 142 MMOL/L (136-145)
[2024-12-31 13:07] LABS: HEMATOCRIT 41.4 % (36.0-47.0); HEMOGLOBIN 12.5 g/dl (12.0-15.5); MEAN CORPUSCULAR HGB CONC 30.2 g/dl (32.0-36.5); MEAN CORPUSCULAR VOLUME 89.4 fl (80.0-96.0); PLATELET COUNT, AUTOMATED 247 10^3/uL (150-450); RED BLOOD COUNT 4.63 10^6/uL (4.00-5.40); WHITE BLOOD COUNT 6.4 10^3/uL (4.0-10.0)
== END ==
LOC: M WUC 08:36
PROVIDERS: ATTEND Internal Medicine Cardiovascular Disease
DX: R06.02 Shortness of breath (principal); I25.10 Atherosclerotic heart disease of native coronary artery without angina pectoris

== ENCOUNTER → 2025-07-02 | Outpatient (CLI) | payer OTHER ==
[2025-07-02 15:57] LABS: ESTIMATED AVERAGE GLUCOSE 134.0 MG/DL (60-110)
[2025-07-02 16:08] LABS: BASO # 0.1 10^3/uL (0.0-0.2); BASO % 1.0 % (0.0-1.0); EOS # 0.2 10^3/uL (0.0-0.5); EOS % 2.5 % (0.0-3.0); LYMPH # 1.6 10^3/uL (1.5-5.0); LYMPH % 25.8 % (24.0-44.0); MONO # 0.5 10^3/uL (0.0-0.8); MONO % 7.5 % (2.0-8.0); NEUTROPHILS # 4.0 10^3/uL (1.5-8.5); NEUTROPHILS % 63.0 % (36.0-66.0); PLATELET COUNT, AUTOMATED 261 10^3/uL (150-450)
[2025-07-02 16:14] LABS: CALCIUM LEVEL 9.0 MG/DL (8.3-10.6); CARBON DIOXIDE LEVEL 30 MMOL/L (20-31); CHLORIDE LEVEL 103 MMOL/L (98-107); CHOLESTEROL LEVEL 133 MG/DL (<200); CHOLESTEROL RISK RATIO 2.57 (<5); CREATININE FOR GFR 0.56 MG/DL (0.55-1.30); GLOMERULAR FILTRATION RATE > 90.0 (>45); LDL CHOLESTEROL 62.4 MG/DL (<100); MAGNESIUM LEVEL 1.7 MG/DL (1.8-2.4); NON-HDL-C 81.4 MG/DL; POTASSIUM SERUM 4.3 MMOL/L (3.5-5.1); SODIUM LEVEL 144 MMOL/L (136-145); TRIGLYCERIDES LEVEL 95 MG/DL (<150)
== END ==
LOC: M WUC 10:13
PROVIDERS: ATTEND Nurse Practitioner Family
DX: J44.9 Chronic obstructive pulmonary disease, unspecified (principal); I10 Essential (primary) hypertension; E66.9 Obesity, unspecified; E78.2 Mixed hyperlipidemia; R25.2 Cramp and spasm; E83.42 Hypomagnesemia